=== PATIENT | male | born 1940 | race Caucasian/White ===

== ENCOUNTER → 2021-06-17 | Outpatient (CLI) | payer OTHER ==
[~2021-06-17] MED LIST: ADULT LOW DOSE81 MG PO; CRESTOR5 MG PO; LISINOPRIL10 MG PO
[2021-06-17 08:37] LABS: CREATININE 0.8 mg/dL (0.6-1.3)
== END ==
LOC: M.LAB 06-05 09:47
PROVIDERS: ATTEND Surgery Vascular Surgery
DX: I65.23 Occlusion and stenosis of bilateral carotid arteries (principal); I25.10 Atherosclerotic heart disease of native coronary artery without angina pectoris; I35.0 Nonrheumatic aortic (valve) stenosis; E78.5 Hyperlipidemia, unspecified; I10 Essential (primary) hypertension

== ENCOUNTER → 2021-06-27 | Outpatient (CLI) | payer OTHER ==
[2021-06-27] VITALS (9 sets, daily range): BP systolic 118–157; BP diastolic 49–96
[~2021-06-27] VITALS: Ht 167.6 cm; Wt 69.4 kg
[2021-06-27 09:45] LABS: HEMATOCRIT 44.3 % (42.0-52.0); HEMOGLOBIN 15.1 gm/dL (14.0-18.0); MCH 31.1 pg (26.0-34.0); MCHC 34.1 g/dL (28.0-37.0); MCV 91.4 fL (80.0-100.0); MPV 7.7 fl. (7.2-11.1); RBC 4.85 mil/uL (4.50-6.00); RDW-CV 13.2 % (10.5-14.5); WBC 6.7 thou/uL (4.0-11.0)
[2021-06-27 09:59] LABS: ALBUMIN 4.2 g/dL (3.4-5.0); ALKALINE PHOSPHATASE 82 U/L (46-116); ANION GAP 4 mmol/L (7-16); BUN 13 mg/dL (7-18); CALCIUM 9.4 mg/dL (8.5-10.1); CHLORIDE 106 mmol/L (98-107); CHOLESTEROL 170 mg/dL (<200); CO2 33 mmol/L (21-32); CREATININE 0.8 mg/dL (0.6-1.3); GLUCOSE 93 mg/dL (70-99); HDL CHOLESTEROL 47 mg/dL (>40); LDL CHOLESTEROL 102 mg/dL (<100); SGOT 28 U/L (15-37); SGPT 37 U/L (30-65); SODIUM 143 mmol/L (136-145); TC:HDL 3.6 Ratio (Not establshd); TOTAL BILIRUBIN 0.5 mg/dL (<0.1-1.0); TOTAL PROTEIN 7.4 g/dL (6.4-8.2); TRIGLYCERIDE 108 mg/dL (<150); VLDL 22 mg/dL (<40)
[2021-06-27 10:04] LABS: SERUM ASSESSMENT CL
[2021-06-27 10:35] LABS: APTT 29.6 Seconds (25.0-31.3); PROTIME 10.4 Seconds (9.20-11.50)
--- NOTE | 2021-06-27 11:05 | EKG ---
[place] [address] ELECTROCARDIOGRAM REPORT Name: ABISAI WORTHYIP Room: [facility]#: [id number] Admission: 06/27/21 Attend Phys: Shabbir Corbett MD Discharge: Date of : 44 Date of Service: 06/27/21 [facility] Report #: [id number] THIS REPORT FOR: //name// [facility] Test Date: 2021-06-27 Test Time: 10:16:29 Pat Name: DAV WORTHY Department: Room: Gender: Small Business Representative: : 1940 Requested By: Shabbir Corbett Order Number: [id number] Narendra MD: Shabbir Corbett Measurements Intervals [place] Rate: 56 P: 54 IN: 190 QRS: 17 QRSD: 134 T: 46 QT: 473 QTc: 457 Interpretive Statements Sinus rhythm Nonspecific intraventricular conduction delay Baseline wander in lead(s) V3 No previous ECG available for comparison Electronically Signed On 06-27-2021 11:05:34 [employer] by Shabbir Corbett [email or web address] <ELECTRONICALLY SIGNED> By: Shabbir Corbett MD, [facility] 06/27/21 1105 [id number] Shabbir Corbett MD, [facility] /EPI
[2021-06-27 12:21] LABS: BE -0.7 mmol/L (-2 to +3); PCO2 39.9 mmHg (35.0-45.0); PO2 72.4 mmHg (75.0-100.0); pH 7.397 (7.340-7.450)
[2021-06-27 12:24] LABS: BE 2.6 mmol/L (-2 to +3); PCO2 VENOUS 46.4 mmHg (41.0-51.0); PO2 VENOUS 37.5 mmHg (35.0-45.0)
--- NOTE | 2021-06-30 16:41 | CARD ---
[address] [address] CARDIAC CATH REPORT Name: DAV WORTHY Room: [facility] MONIKA MisaelVenkat#: [id number] Admission: 06/27/21 Attend Phys: Shabbir Corbett MD, F Discharge: Date of : 44 Report #: [id number] THIS REPORT FOR: cc: Le Padilla MD, Paula V. MD Blick, David R. MD [facility] ~ ADDENDUM APPROVED REPORT Study performed: 06/27/2021 10:51:27 Patient Details Patient Status: Out-Patient Room #: Event Personnel Shabbir Corbett MD,Dish Room Worker; Mckenzie Borjas RN; Sonia Frazier RTR, Scrub; Dora Shah RTR, Monitor Procedures Performed Access- Right Femoral Vein and Right Femoral Artery, Right and LHC with Bypass Grafts, Supravalvular Aortography Injection, Hemostasis- Mynx in Right femoral artery, Hemostasis- Manual pressure in right femoral vein Indication Dyspnea, Valvular heart disease Risk Factors Cerebrovascular Disease, Hypercholesterolemia, Coronary Artery DiseaseHypertension Previous Procedures/Diagnoses Previous CABG Procedure Narrative The patient was brought electively to the Cardiac Catheterization Laboratory and was prepped and draped in a sterile manner. The right femoral was infiltrated with 2% Lidocaine subcutaneous anesthesia. IV conscious sedation was used throughout procedure with appropriate monitoring and was performed in the presence of a registered nurse who was an independent trained observer other than the physician performing the procedure. A Right Heart Catheterization was performed with a 7 Fr. Mina-Lina catheter and pressure were recorded. Cardiac outputs were obtained by the Thermal Dilution method. A 7 Fr Ibteh sheath was inserted into the [place] [address] CARDIAC CATH REPORT Name: DAV WORTHY Room: [facility]#: [id number] Admission: 06/27/21 Attend Phys: Shabbir Corbett MD, F Discharge: Date of : 44 Report #: [id number] angiography was performed using coronary diagnostic catheters. The right coronary system was accessed and visualized with a Diagnostic 6 Fr JR 4 catheter. The left coronary system was accessed and visualized with a Diagnostic 6 Fr JL 4 catheter. The left ventricle was accessed and visualized with a Diagnostic 6 Fr Pigtail catheter. Left ventricular/Aortic Valve gradient assessed via catheter pullback. Left ventriculogram was performed in JEFFRIES projection. An aortogram of the ascending aorta was performed. Pre-demployment femoral angiogram was performed . Closure device was deployed with a 6 Fr 6/7 Fr Mynx. Hemostasis was obtained with manual pressure following sheath removal without any complications. The patient tolerated the procedure well and there were no complications associated with the procedure. There was no hematoma. The SVG to the Circ was accessed and visualized with a Diagnostic 6 Fr JR 4 catheter. The VEGA graft to the LAD was accessed and visualized with a Diagnostic 6 Fr IM catheter. The SVG to the RCA was accessed and visualized with a Diagnostic 6 Fr RCB catheter. Intraoperative Conscious Sedation Sedation start time: 12:08 Case end Time: 12:58 Versed 2.0 mg Fluoro Time: 10.9 minutes Dose: DAP 75485 cGycm2 471 mGy Contrast Type and Amount: Omnipaque 180 ml Coronary Angiography The patient's coronary anatomy is co- dominant. [place] Artery Percent Stenosis Grafts (Complete if Previous CABG=Yes: Percent Stenosis) Patent VEGA graft to the mid LAD. SVG to the circumflex artery appearred chronically occluded. SVG to the distal PDA branch of the RCA had a distal 70% stenosis. Diagnostic Cath Left Main 0% stenosis LAD ostial 100% chronic occlusion. Circumflex 0% stenosis OM1 Medium sized vessel with 90% proximal stenosis. Antegrade flow from the marginal branch filled a portion of the SVG that had an anastomosis to a ramus branch and a diagonal branch. Right Coronary 100% [place] [address] CARDIAC CATH REPORT Name: DAV WORTHY Room: [facility]#: [id number] Admission: 06/27/21 Attend Phys: Shabbir Corbett MD, F Discharge: Date of : 44 Report #: [id number] Left Ventriculography The left ventricular ejection fraction is estimated to be 40-45%. Left ventricular wall motion abnormalities are not present. There is no mitral insufficiency. No aortic insufficiency noted on aortic root injection. Hemodynamics The right atrial mean pressure is 10/4/7 mmHg. The right ventricular pressure is 55/1/11 mmHg. The pulmonary artery pressure is 56/19/31 mmHg with a mean of mmHg. The mean pulmonary capillary wedge pressure is 18/17/14 mmHg. The aortic pressure is 175/76 mmHg with a mean of 117 mmHg. The left ventricular pressure is 201/14 mmHg with a mean of mmHg. The left ventricular end diastolic pressure is 18 mmHg. Pullback from the left ventricle to the aorta revealed a 36 mm gradient across the aortic valve. PaO2 saturation is 71.9 %. Arterial saturation is 93.6 %. The cardiac output and index were assessed using thermodilution. The cardiac output using thermo method is 4.30 L/min. The cardiac index using thermo method is 2.42 L/min/m2. The aortic valve area is 0.80 cm2. Conclusion 1. Chronic occlusion of the LAD that filled by a patent VEGA graft. 2. 90% proximal stenosis of the first marginal branch of the circumflex artery. 3. Chronic occlusion of the proximal RCA. 4. Chronic occlusion of the SVG to the circumflex artery. 5. 70% distal stenosis of the SVG to the PDA branch of the distal RCA. 6. LVEF 40-45% 7. Moderate aortic stenosis. Recommendations 1. Patient appears stable from a cardiac standpoint to proceed with CEA. 2. Consider TAVR if the patient develops symptoms secondary to aortic stenosis. 3. Consider repeat echo in 6 months. <ELECTRONICALLY SIGNED> By: Shabbir Corbett MD, FACC 06/30/211640 40 [id number] Corbett MD, FACC /INF
--- NOTE | 2021-07-01 14:18 | H ---
[place] [address] HISTORY AND PHYSICAL Name: DAV WORTHY Room: [facility] GAB ChambersVenkatPriscillaVenkat#: [id number] Admission: 06/27/21 Attend Phys: Shabbir Corbett MD, F Discharge: Date of : 44 Report #: [id number] THIS REPORT FOR: cc: Le Padilla MD,Le Corbett,Shabbir Aguilar MD [facility] ~ cc: Le Padilla MD ADMIT DATE: 06/27/2021 STAT HISTORY AND PHYSICAL HISTORY OF PRESENT ILLNESS: The patient is a 80-year-old white male who came to the outpatient department to undergo cardiac catheterization. The patient had 5-vessel bypass surgery in 1992 at [facility]. He previously was cared for by Dr. Hoyos. His last stress test was several years ago. He has a history of known aortic stenosis. He actually had an echocardiogram performed last March that showed an ejection fraction of 55% with severe aortic stenosis. He refused referral for TAVR. Recently, he underwent a carotid Doppler study in July that showed a severe stenosis of the right carotid artery. He initially refused referral to a vascular surgeon for CEA. Recently, he saw my nurse practitioner last month. After discussion with his , he decided to proceed with carotid surgery and consideration of TAVR. He was actually seen by Dr. Cole recently and he is scheduled for a CEA next month at [facility]. I was asked to see him for cardiac catheterization. He denies any chest pain, although he does get short of breath with exertion. He has had no edema, fever or cough. He notes occasional episodes when his heart rate will increase and skip. Because of slow heart rate, he actually wore a manager cardiac cath last October that showed an average heart rate of 61 and rates down to 41 with a 2.3 second pause. He denied any lightheadedness. PAST MEDICAL HISTORY: Otherwise, significant for no other major surgical procedures. He does have a history of hypertension and hyperlipidemia. CURRENT MEDICATIONS: Include aspirin, lisinopril, rosuvastatin. ALLERGIES: HE HAS A PREVIOUS INTOLERANCE TO IV CONTRAST. FAMILY HISTORY: His father had heart attack. SOCIAL HISTORY: He is . He and his live in [place]. 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 Quit smoking in 1986. No alcohol abuse. REVIEW OF SYSTEMS: No history of stroke, asthma, liver [place] [address] HISTORY AND PHYSICAL Name: DAV WORTHY Room: [facility]#: [id number] Admission: 06/27/21 Attend Phys: Shabbir Corbett MD, F Discharge: Date of : 44 Report #: [id number] disease. Basal cell carcinoma removed in the past. He wears glasses. No psychiatric illness. No chronic skin condition. PHYSICAL EXAMINATION: GENERAL: Revealed an elderly male, appeared in no distress. VITAL SIGNS: He had a blood pressure of 130/80, pulse is 60. HEENT: He was anicteric. Conjunctivae pink. Mucous membranes moist. NECK: Veins do not distended. Bilateral carotid bruits noted. CHEST: Clear to auscultation. HEART: Regular rate and rhythm. Grade 4 systolic ejection murmur at left sternal border. ABDOMEN: Soft. EXTREMITIES: Had no edema. Dorsalis pedis pulse cannot be palpated. SKIN: Cool and dry. NEUROLOGIC: Nonfocal. ECG shows a sinus rhythm, occasional PVC. LABORATORY DATA: Lab work in October included creatinine 0.9, cholesterol 184, triglyceride 158, HDL 40, LDL 117. He had a normal hemoglobin. TSH is 1.1. IMPRESSION AND RECOMMENDATIONS: 1. Severe aortic stenosis. Recommend cardiac catheterization for consideration of transcatheter aortic valve replacement. The patient appears relatively asymptomatic. 2. Coronary artery disease. Recommend cardiac catheterization to assess patency of his bypass grafts. 3. Severe aortic stenosis by echocardiography. Recommend catheterization. 4. Severe carotid stenosis. The patient is scheduled for carotid endarterectomy. I would recommend cardiac catheterization prior to proceeding with carotid endarterectomy to assess his aortic stenosis. 5. Hypertension. The patient is on MARGARET inhibitor. 6. Hyperlipidemia. The patient in the past was not interested in increasing his dose of Crestor. 7. Previous tobacco abuse. 8. Previous removal of a basal cell carcinoma. 9. History of bradycardia. I would avoid beta blockers. <ELECTRONICALLY SIGNED> By: Shabbir Corbett MD, [facility] 07/01/21 1418 [id number] [id number] Jeff Corbett MD, FAC /nt
== END ==
LOC: M.CL 06-11 10:30
PROVIDERS: ATTEND Internal Medicine Cardiovascular Disease
DX: I25.810 Atherosclerosis of coronary artery bypass graft(s) without angina pectoris (principal); I25.82 Chronic total occlusion of coronary artery; I35.0 Nonrheumatic aortic (valve) stenosis; R06.00 Dyspnea, unspecified; I10 Essential (primary) hypertension; E78.5 Hyperlipidemia, unspecified; Z95.1 Presence of aortocoronary bypass graft; Z98.890 Other specified postprocedural states; Z79.899 Other long term (current) drug therapy; Z85.828 Personal history of other malignant neoplasm of skin; Z87.891 Personal history of nicotine dependence; Z20.822 Contact with and (suspected) exposure to COVID-19